=== PATIENT | male | born 2000 | race Caucasian/White ===

== ENCOUNTER → 2020-07-08 15:11 | Outpatient (CLI) | payer OTHER, SELFPAY ==
[2020-07-08 15:57] LABS: COVID19 -Nasal RAPID Negative (Negative)
== END ==
PROVIDERS: Visit Provider Nurse Practitioner
DX: Z11.59 Encounter for screening for other viral diseases (principal)
CPT/HCPCS: 87635

== ENCOUNTER → 2020-07-17 08:01 | Outpatient (CLI) | payer OTHER, SELFPAY ==
--- NOTE | 2020-07-17 | DI.ECHO.S_ITS ---
Version: 1 Study ID: [id number] [place] [address] Name: ANUP INMAN Study Date: 07/17/2020, 8: 29 AM : 2000 BP: 136 / 102 mmHg Gender: Male Height: 71 in Age: 19 Years Weight: 273 lb BSA: 2.41 mA? Ordering: EDDIE FAIRCHILD Referring: RAHEEM FAIRCHILD Clinician: Sugar Steele Reason For Study: UNSPECIFIED CONVULSIONS History: Summary Statements This is a technically difficult study. Next time consider enhancing images with Definity echocontrast. Normal sinus rhythm. Normal LV size, wall thickness, wall motion and LV systolic function. EF is 50-55%. Normal chamber sizes. No significant valvular abnormalities. No prior study available for comparison. Procedure: A two-dimensional transthoracic echocardiogram with color flow and Doppler was performed. There is no prior echocardiogram noted for this patient. The patient was in sinus rhythm with heart rates between 60-72 bpm during the exam. Left Ventricle: The left ventricle is normal in size and wall thickness. The ejection fraction is estimated to be 50-55%. Diastolic parameters suggest probable normal left ventricular diastolic function and normal filling pressures. Right Ventricle: The right ventricle is not well visualized. The right ventricular systolic function is normal. Atria: The left atrial size is normal. Right atrial size is normal. There is no Doppler evidence for an interatrial shunt. Mitral Valve: The mitral valve is normal in structure and function. There is trace mitral regurgitation. Aortic Valve: The aortic valve is trileaflet. The aortic valve opens well. There is no aortic valve stenosis. No aortic regurgitation is present. Tricuspid Valve: The tricuspid valve is not well visualized, but is grossly normal. No tricuspid regurgitation. Pulmonary artery pressures cannot be estimated because of the lack of a measurable TR jet velocity but the IVC suggests a CVP of around 3 mmHg. Pulmonic Valve: The pulmonic valve leaflets are thin and pliable; valve motion is normal. There is trace pulmonic regurgitation. Great Vessels: The aortic root is normal size. The dimensions of the ascending aorta are normal. The IVC is of normal diameter and collapses greater than 50% with a sniff. This suggests a low right atrial pressure of 3 mm Hg. Pericardium/ Pleura: There is no pericardial effusion. There is no pleural effusion. 2D and M-Mode Measurements and Calculations LVIDd: 5.4 cm AoV Openin.30 cm LVIDs: 3.7 cm LVOT diam: 2.38 cm IVSd: 0.68 cm Ao root diam: 3.5 cm LVPWd: 1.11 cm asc Aorta Diam: 3.1 cm LV jerome. diameter/BSA (cm/m^2): 2.24 Ao Arch Diam (Prox Trans): 2.44 cm LV sys. 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 RA long axis: 5.2 cm LA length (vol): 5.2 cm RA vol: 52.4 ml LA vol: 51.9 ml RA : 21.8 ml/mA? LA vol index: 21.6 ml/mA? 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 DELIA indexed to BSA (cm^2/m^2): 1.75 sev ratio: 0.95 MV E max mazin: 79.2 cm/sec MV dec time: 0.21 sec MV A max mazin: 49.9 cm/sec MV E/A: 1.59 Med Peak E' Mazin: 10.7 cm/sec Lat Peak E' Mazin: 11.6 cm/sec E/e' average: 7.1 PA V2 max: 87.3 cm/sec PA mean P.52 mmHg Electronically signed by: Joan uVong M.D. 07/18/2020, 1: 22 AM
== END ==
PROVIDERS: Referring Provider Physician Assistant; Visit Provider Physician Assistant
DX: R56.9 Unspecified convulsions (principal)
CPT/HCPCS: 93306